=== PATIENT | female | born 1965 | race Caucasian/White ===

== ENCOUNTER 2017-12-15 11:44 | Day surgery (SDC) | payer OTHER ==
[2017-12-15] MEDS ORDERED: PROPOFOL 60 ML (13:05)
[2017-12-15] MEDS ORDERED: LIDOCAINE 2% (SDV) 5 ML INJ (13:05)
== END 2017-12-15 14:54 | disposition home or self-care (01) ==
LOC: GIL 11:44
DX: Z12.11 Encounter for screening for malignant neoplasm of colon (principal); D12.0 Benign neoplasm of cecum; K29.70 Gastritis, unspecified, without bleeding; K64.8 Other hemorrhoids; K57.90 Diverticulosis of intestine, part unspecified, without perforation or abscess without bleeding
CPT/HCPCS: 43239; 88305; 88312